=== PATIENT | male | born 1980 | race African-American/Black ===

== ENCOUNTER 2021-05-01 20:52 | Emergency (ER) | payer OTHER ==
[2021-05-01 21:28] VITALS: BP 174/77; PULSE 85; RESP 20; TEMP 98.1
--- NOTE | 2021-05-01 21:33 | ED ---
General Adult HPI - General Chief complaint: Recheck/Abnormal Lab/Rx Stated complaint: Covid test Source: patient Mode of arrival: ambulatory Limitations: no limitations - History of Present Illness Initial comments: Monster was a healthy 40-year-old male presents the emergency department requesting a COVID-19 test for him to [place]. He has no medical complaints. - Related Data Allergies Allergy/AdvReac Type Severity Reaction Status Date / Time No Known Allergies Allergy Verified 05/01/21 21:26 Review of Systems ROS Statement: Those systems with pertinent positive or pertinent negative responses have been documented in the HPI. ROS Other: All systems not noted in ROS Statement are negative. Past Medical History Past Medical History: No Reported History Past Surgical History: No Surgical Hx Reported Past Psychological History: No Psychological Hx Reported Smoking Status: Current some day smoker Past Alcohol Use History: Occasional Past Drug Use History: None Reported General Exam - General Exam Comments Initial Comments: Physical Exam GENERAL: Patient is well-developed and well-nourished. Patient is nontoxic and well-hydrated and is in no distress. HENT: Normocephalic, Atraumatic. EYES: PERRL, EOMI PULMONARY: Unlabored respirations. CARDIOVASCULAR: No cyanosis, no active bleeding ABDOMEN: Non-distended SKIN: No rashes or bruising : Deferred NEUROLOGIC: Alert and oriented Normal speech Normal gait MUSCULOSKELETAL: Moving all extremities with no apparent injury PSYCHIATRIC: No SI/HI Limitations: no limitations Course Vital Signs 05/01/21 21:26 Temperature 98.1 F Pulse Rate 85 Respiratory 20 Rate Blood Pressure 174/77 O2 Sat by Pulse 96 Oximetry Medical Decision Making - Medical Decision Making Patient was seen history obtained from patient COVID-19 test obtained patient will be given printed copies of his results to [place]. Disposition Clinical Impression: Encounter for laboratory testing for COVID-19 virus Disposition: HOME SELF-CARE Condition: Stable Is patient prescribed a controlled substance at d/c from ED?: No Referrals: Nonstaff,Physician [Primary Care Provider] - 1-2 days
== END 2021-05-01 22:31 | disposition home or self-care (01) ==
LOC: EC 20:52
DX: Z11.52 Encounter for screening for COVID-19 (principal)
CPT/HCPCS: 87635; 99282